=== PATIENT | male | born 1950 | race Caucasian/White ===

== ENCOUNTER → 2019-06-23 13:33 | Outpatient (REF) | payer MEDICARE, OTHER, SELFPAY | LOC: ANHLAB 13:33 | PROVIDERS: Visit Provider Nurse Practitioner | DX: D49.2 Neoplasm of unspecified behavior of bone, soft tissue, and skin (principal) | CPT/HCPCS: 88305 ==

== ENCOUNTER → 2019-10-06 15:09 | Outpatient (REF) | payer MEDICARE, OTHER, SELFPAY | LOC: ANHLAB 15:09 | PROVIDERS: Visit Provider Nurse Practitioner | DX: L57.0 Actinic keratosis (principal) | CPT/HCPCS: 88305 ==

== ENCOUNTER 2023-02-27 07:00 | Outpatient (NON) | payer MEDICARE, OTHER, SELFPAY | END 2023-02-27 07:01 | disposition home or self-care (01) | LOC: ANHLAB 02-28 12:31 | PROVIDERS: Visit Provider Nurse Practitioner | DX: C44.41 Basal cell carcinoma of skin of scalp and neck (principal) | CPT/HCPCS: 88305 ==

== ENCOUNTER 2023-04-09 14:20 | Outpatient (NON) | payer MEDICARE, OTHER, SELFPAY | END 2023-04-09 14:21 | disposition home or self-care (01) | LOC: ANHLAB 14:20 | PROVIDERS: Visit Provider Nurse Practitioner | DX: C44.41 Basal cell carcinoma of skin of scalp and neck (principal) | CPT/HCPCS: 88305; 88331 ==